=== PATIENT | male | born 1980 | race Caucasian/White ===

== ENCOUNTER 2016-10-26 10:10 | Emergency (ER) | payer MEDICAID ==
[~2016-10-26] VITALS: Ht 175.3 cm; Wt 99.8 kg
[2016-10-26 10:12] VITALS: BP 125/74
[2016-10-26] MEDS ORDERED: LIPITOR20 MG PO (10:17)
[2016-10-26] MEDS ORDERED: OMEPRAZOLE40 MG PO (10:17)
[2016-10-26] MEDS ORDERED: ACIPHEX20 M1 PO (10:17)
[2016-10-26] MEDS ORDERED: ZESTRIL10 MG PO (10:17)
--- NOTE | 2016-10-26 10:20 | NUR ---
Note undone in EDM - 10/26/16 at 1213 by RAMSEY PATIENT PRESENTS TO ED WITH FELL YESTERDAY, C/O LEFT ANKLE AND FOOT PAIN . DENIES N/V/D; SKIN IS PINK/WARM/DRY; AAOX4. LUNGS CLEAR BL; HR EVEN AND REGULAR; PT DENIES ANY FEVER, CP, SOB, OR COUGH AT THIS TIME; PATIENT STATES PAIN OF 8/10 AT THIS TIME; VSS; PATIENT POSITIONED FOR COMFORT; HOB ELEVATED; BEDRAILS UP X2; BED DOWN. ER MD MADE AWARE OF PT STATUS.
[2016-10-26] MEDS ORDERED: ACETAMINOPHEN 325 MG TAB PO ONE (10:45)
--- NOTE | 2016-10-26 10:50 | NUR ---
X-Ray at bedside.
[2016-10-26 11:59] VITALS: BP 122/70
--- NOTE | 2016-10-26 11:59 | NUR ---
Note vegaone in EDM - 10/26/16 at 1214 by RAMSEY Patient discharged with v/s stable. Written and verbal after care instructions given and explained. Patient alert, oriented and verbalized understanding of instructions. Ambulatory with to car. All questions addressed prior to discharge. ID band removed. Patient advised to follow up with PMD. Rx of MOTRIN 600MG given. Patient educated on indication of medication including possible reaction and side effects. Opportunity to ask questions provided and answered.
--- NOTE | 2016-10-26 11:59 | NUR ---
Patient discharged with v/s stable. Written and verbal after care instructions given and explained. Patient alert, oriented and verbalized understanding of instructions. Ambulatory with to car. All questions addressed prior to discharge. ID band removed. Patient advised to follow up with PMD. Rx of TYLENOL EXTRA STRENGTH given. Patient educated on indication of medication including possible reaction and side effects. Opportunity to ask questions provided and answered.
== END 2016-10-26 11:59 | disposition home or self-care (01) ==
LOC: MED 10:10
DX: S93.492A Sprain of other ligament of left ankle, initial encounter (principal); Z88.6 Allergy status to analgesic agent; W17.2XXA Fall into hole, initial encounter; Y93.01 Activity, walking, marching and hiking; Y92.89 Other specified places as the place of occurrence of the external cause; Y99.8 Other external cause status
CPT/HCPCS: 29515; 73610; 73630; 99284; Q0092

== ENCOUNTER 2018-12-04 10:30 | Emergency (ER) | payer OTHER ==
[~2018-12-04] VITALS: Ht 175.3 cm; Wt 102.1 kg
[~2018-12-04 10:30] MED LIST: ATOR20TA PO; LISI10TA11 PO; OMEP40EC14 PO; RABE20EC17 PO
[2018-12-04 10:38] VITALS: BP 111/76
--- NOTE | 2018-12-04 10:55 | NUR ---
BIBA FOR CHEST PAIN S/P ROTATOR CUFF SURGERY YESTERDAY. PT STATES CHEST FEELS CRUSHING PAIN AND THROAT HURTS. COMPLETE NERVE BLOCK ON SHOULDER; NO PAIN. PT REPORTS WEAK AND DIZZY, FELL AT HOME, COUGHING/VOMITING "BROWN STUFF" HX: GASTRITIS AND HTN RX: LISINOPRIL, OMEPRAZOLE, LIPITOR, TYLENOL, ACHIPEX
--- NOTE | 2018-12-04 11:41 | NUR ---
Patient being evaluated by physician at bedside.
[2018-12-04] MEDS ORDERED: LIDOCAINE VISCOUS 2% 20 ML UDC PO ONE (12:10)
--- NOTE | 2018-12-04 12:36 | NUR ---
PT ATTEMPTED TO GARGLE VISCOUS LIDO BUT IMMEDIATELY SPIT IT UP. ED MD NOTIFIED.
[2018-12-04 14:00] VITALS: BP 111/76
--- NOTE | 2018-12-04 14:01 | NUR ---
Patient discharged with v/s stable. Written and verbal after care instructions given and explained. Patient alert, oriented and verbalized understanding of instructions. Ambulatory with steady gait. All questions addressed prior to discharge. ID band removed. Patient advised to follow up with PMD. Rx of LEVAQUIN given. Patient educated on indication of medication including possible reaction and side effects. Opportunity to ask questions provided and answered.
== END 2018-12-04 14:01 | disposition home or self-care (01) ==
LOC: MED 10:30
DX: J95.89 Other postprocedural complications and disorders of respiratory system, not elsewhere classified (principal); J98.11 Atelectasis; R50.9 Fever, unspecified; G89.18 Other acute postprocedural pain
CPT/HCPCS: 71045; 93005; 99283; Q0092

== ENCOUNTER 2024-05-05 00:20 | Emergency (ER) | payer BC, OTHER ==
[~2024-05-05] VITALS: Ht 175.3 cm; Wt 112.9 kg
[~2024-05-05 00:20] MED LIST changes: +LISI-951 PO; -LISI10TA11 PO; -OMEP40EC14 PO; +OMEP40EC23 PO
[2024-05-05 00:40] VITALS: BP 143/74; PULSE 67; RESP 16; TEMP 98; O2SAT 96
== END 2024-05-05 02:21 | disposition left against medical advice (07) ==
LOC: MED 00:20
DX: K64.9 Unspecified hemorrhoids (principal); Z53.21 Procedure and treatment not carried out due to patient leaving prior to being seen by health care provider